=== PATIENT | female | born 1975 | race Asian ===

== ENCOUNTER 2020-08-25 09:05 | Emergency (ER) | payer BC ==
[~2020-08-25] VITALS: Ht 160 cm; Wt 68.0 kg
--- NOTE | 2020-08-25 09:28 | NUR ---
Dr Ferreira at the bedside for MSE.
[2020-08-25] MEDS ORDERED: LOSA25TA27 PO (09:34)
[2020-08-25] MEDS ORDERED: AMLODIPINE 5 MG TABLET PO ONE (09:45)
[2020-08-25] MEDS ORDERED: AMLODIPINE 5 MG TABLET ONE (09:46)
[2020-08-25] MEDS ORDERED: AMLO-212 PO (10:02)
--- NOTE | 2020-08-25 10:04 | NUR ---
Pt back from Ct, states headache is better.
[2020-08-25 10:14] LABS: BASOPHILS # (AUTO) 0.1 K/uL (0.0-8.0); BASOPHILS % (AUTO) 1.2 % (0.0-2.0); EOSINOPHILS # (AUTO) 0.1 K/uL (0.0-0.7); EOSINOPHILS % (AUTO) 2.4 % (0.0-7.0); HEMOGLOBIN 13.7 g/dL (10.9-14.3); LYMPHOCYTES # (AUTO) 1.6 K/uL (20.0-40.0); LYMPHOCYTES % (AUTO) 30.2 % (20.5-51.5); MEAN CORPUSCULAR HEMOGLOBIN 30.3 uug (24.7-32.8); MEAN CORPUSCULAR HGB CONC 34 g/dL (32.3-35.6); MEAN CORPUSCULAR VOLUME 88.6 fL (75.5-95.3); MONOCYTES # (AUTO) 0.3 K/uL (2.0-10.0); MONOCYTES % (AUTO) 6.3 % (0.0-11.0); NEUTROPHILS # (AUTO) 3.2 K/uL (1.8-8.9); NEUTROPHILS % (AUTO) 59.9 % (38.5-71.5); PLATELET COUNT (AUTO) 200 K/uL (179-408); RED BLOOD CELL COUNT(AUTO) 4.52 MIL/uL (3.63-4.92); WHITE BLOOD COUNT (AUTO) 5.3 K/uL (3.8-11.8)
[2020-08-25 10:26] LABS: CREATININE 0.6 mg/dL (0.6-1.3); POTASSIUM 3.5 mmol/L (3.5-5.1)
[2020-08-25 10:57] VITALS: BP 125/71
--- NOTE | 2020-08-25 10:57 | NUR ---
Patient discharged to home in stable condition. Written and verbal after care instructions given. Patient verbalizes understanding of instructions. Stressed follow up or return to ER for worsening s/s.
== END 2020-08-25 10:58 | disposition home or self-care (01) ==
LOC: EDSEX 09:05 → ER 09:05
DX: I10 Essential (primary) hypertension (principal); R51.9 Headache, unspecified; Z85.3 Personal history of malignant neoplasm of breast; Z92.21 Personal history of antineoplastic chemotherapy; Z92.3 Personal history of irradiation
CPT/HCPCS: 36415; 70030-TC; 70450; 71045; 85025; 93005; A4663